=== PATIENT | male | born 1955 | race Caucasian/White ===

== ENCOUNTER 2020-10-07 19:35 | Inpatient (IN) | payer OTHER ==
[~2020-10-07] VITALS: Ht 180.3 cm; Wt 110.7 kg
[2020-10-08] MEDS ORDERED: AMLODIPINE BESYL5 MG (08:16)
[2020-10-08] MEDS ORDERED: CARVEDILOL12.5 M1 (08:16)
[2020-10-08] MEDS ORDERED: HYDROCORTISON28.4 G4 (08:16)
[2020-10-08] MEDS ORDERED: GABAPENTIN800 M1 (08:16)
[2020-10-08] MEDS ORDERED: LOSARTAN-HCTZ1 EAC1 (08:17)
[2020-10-08] MEDS ORDERED: SIMVASTATIN40 MG (08:17)
[2020-10-08] MEDS ORDERED: TRAZODONE HCL300 MG (08:17)
[2020-10-11] MEDS ORDERED: Neurin-Sl Tablet Sl SL (08:52)
[2020-10-11] MEDS ORDERED: OXYC1TAB9 PO (08:52)
[2020-10-11] MEDS ORDERED: INTEGRA F CAPS1 EACH PO (08:53)
[2020-10-11] MEDS ORDERED: RECTICARE30 GM TOP (08:53)
[2020-10-11] MEDS ORDERED: INTESTINEX680 M1 PO (08:54)
[2020-10-11] MEDS ORDERED: FLAGYL500MG PO (08:54)
[2020-10-11] MEDS ORDERED: AMOX1TAB5 PO (08:54)
[2020-10-11] MEDS ORDERED: PEPCID20 MG PO (08:55)
== END 2020-10-11 09:33 | disposition home or self-care (01) | DRG 348 ==
LOC: SURG 19:35
PROVIDERS: ADMIT Surgery; ATTEND Surgery
PROC: 06BY0ZC Excision of Hemorrhoidal Plexus, Open Approach (ICD-10-PCS; principal; 2020-10-09 17:00)
DX: K64.2 Third degree hemorrhoids (principal); K62.5 Hemorrhage of anus and rectum; K60.1 Chronic anal fissure; D50.0 Iron deficiency anemia secondary to blood loss (chronic); I11.0 Hypertensive heart disease with heart failure; I50.9 Heart failure, unspecified; E78.5 Hyperlipidemia, unspecified; E66.9 Obesity, unspecified; Z68.34 Body mass index [BMI] 34.0-34.9, adult; Z20.822 Contact with and (suspected) exposure to COVID-19